=== PATIENT | male | born 2000 | race Caucasian/White ===

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

== ENCOUNTER 2019-01-20 11:14 | Emergency (ER) | payer OTHER ==
[2019-01-20 11:27] VITALS: BP 126/85; PULSE 79; RESP 18; TEMP 97.8
[2019-01-20] MEDS ORDERED: IBUPROFEN 600 MG TAB PO STA (11:31)
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
== END 2019-01-20 12:20 | disposition home or self-care (01) ==
LOC: EC 11:14
DX: S83.92XA Sprain of unspecified site of left knee, initial encounter (principal); S80.211A Abrasion, right knee, initial encounter; V86.99XA Unspecified occupant of other special all-terrain or other off-road motor vehicle injured in nontraffic accident, initial encounter; Y92.59 Other trade areas as the place of occurrence of the external cause
CPT/HCPCS: 99283

== ENCOUNTER 2023-04-12 02:25 | Emergency (ER) | payer OTHER ==
[2023-04-12] MEDS ORDERED: FLUORESCEIN STRIPS 1 MG STRIP LEFT EYE ONE (02:40)
[2023-04-12] MEDS ORDERED: PROPARACAINE 0.5% OPHTH DROPS 15 ML BTL BOTH EYES STA (02:40)
[2023-04-12 02:55] VITALS: TEMP 97.9
[2023-04-12] MEDS ORDERED: KETOROLAC 0.5% OPHTH DROPS 5 ML BTL BOTH EYES ONE (03:08)
[2023-04-12] MEDS ORDERED: SULFACETAMIDE SOD 10% OPHTH DROPS 15 ML BTL BOTH EYES ONE (03:08)
--- NOTE | 2023-04-12 03:45 | ED ---
Eye Problem HPI - General Chief complaint: Eye Problems Stated complaint: Eye Irritation Time Seen by Provider: 04/12/23 02:40 Source: patient, RN notes reviewed Mode of arrival: ambulatory Limitations: no limitations - History of Present Illness Initial comments: This is a 22-year-old male who presents to the emergency department for bilateral eye pain. States that he was cutting metal earlier today and is unsure if he may have gotten a piece in his eye, or if it just feels irritated. He may have also had a piece on his hand while he went to scratch his eye and cut it. He did use Visine eyedrops, which he initially felt were beneficial. However, when he woke up he had increasing pain. The right eye is more painful than the left. He does feel like he has some difficulty with his vision, however he states that this is likely from the pain and not wanting to open his eyes. He does not wear contacts. MD chief complaint: eye pain, eye redness - Related Data Previous Rx's Medication Instructions Recorded Amoxicillin 500 mg PO Q8H #30 capsule 03/24/15 Ibuprofen [Motrin] 600 mg PO Q8HR PRN #30 tab 01/20/19 Allergies Allergy/AdvReac Type Severity Reaction Status Date / Time No Known Allergies Allergy Verified 04/12/23 02:34 Review of Systems ROS Statement: Those systems with pertinent positive or pertinent negative responses have been documented in the HPI. ROS Other: All systems not noted in ROS Statement are negative. Past Medical History Past Medical History: No Reported History History of Any Multi-Drug Resistant Organisms: None Reported Past Surgical History: Ear Surgery Past Psychological History: No Psychological Hx Reported Smoking Status: Current every day smoker Past Alcohol Use History: Occasional Past Drug Use History: Marijuana General Exam Limitations: no limitations General appearance: alert, in no apparent distress Head exam: Present: atraumatic, normocephalic, normal inspection Eye exam: Present: PERRL, EOMI, other (Bilateral conjunctival injection, no obvious foreign bodies.) Respiratory exam: Present: normal lung sounds bilaterally. Absent: respiratory distress, wheezes, rales, rhonchi, stridor Cardiovascular Exam: Present: regular rate, normal rhythm, normal heart sounds. Absent: systolic murmur, diastolic murmur, rubs, gallop, clicks Neurological exam: Present: alert, oriented X3, CN II-XII intact Psychiatric exam: Present: normal affect, normal mood Skin exam: Present: warm, dry, intact, normal color. Absent: rash Course Vital Signs 04/12/23 04/12/23 02:32 03:55 Temperature 97.9 F 97.9 F Pulse Rate 94 97 Respiratory 18 12 Rate Blood Pressure 131/87 151/77 O2 Sat by Pulse 98 99 Oximetry Medical Decision Making - Medical Decision Making This is a 22-year-old male who presents to the emergency department for eye pain and redness. Was pt. sent in by a medical professional or institution? @ -No Did you speak to anyone other than the patient for history? @ -No Did you review nursing and triage notes? @ -Yes, and I agree, it is accurate with regards to the patient's symptoms. Were old charts reviewed? @ -No Differential Diagnosis? @ -Differential Eye Pain: Conjuncitivitis (viral, bacterial, allergic), corneal abrasion, foreign body, iritis, uveitis, keratitis, acute angle closure glaucoma, this is not meant to be an all-inclusive list. EKG interpreted by me (3pts min.)? @ -Not obtained X-rays interpreted by me (1pt min.)? @ -Not obtained CT interpreted by me (1pt min.)? @ -Not obtained U/S interpreted by me (1pt. min.)? @ -Not obtained What testing was considered but not performed? (CT, X-rays, U/S, labs)? Why? @ -None What meds were considered but not given? Why? @ -None Did you discuss the management of the patient with other professionals? @ -No Did you reconcile home meds? @ -No Was smoking cessation discussed for >3mins.? @ -No Was critical care preformed (if so, how long)? @ -No Were there social determinants of health that impacted care today? How? (Homelessness, low income, unemployed, alcoholism, drug addiction, transportation, low edu. Level, literacy, decrease access to med. care, prison, rehab)? @ -No Was there de-escalation of care discussed even if they declined? (Discuss DNR or withdrawal of care, Hospice)? @ -No What co-morbidities impacted this encounter? (DM, HTN, Smoking, COPD, CAD, Cancer, CVA, Hep., AIDS, mental health diagnosis, sleep apnea, morbid obesity)? @ -None Was patient admitted / discharged? @ -Discharged. Fluorescein staining performed revealing a right-sided corneal abrasion. I did not identify any obvious foreign bodies. We did attempt to do irrigation with Mariano lens, however the patient did not tolerate this and we had to stop. He was given a bottle sulfacetamide eyedrops in the emergency department for the corneal abrasion. Information for ophthalmology follow-up provided, he is instructed to contact them for follow-up appointment. Patient discharged home in stable condition. Undiagnosed new problem with uncertain prognosis? @ -None Drug Therapy requiring intensive monitoring for toxicity (Heparin, Nitro, Insulin, Cardizem)? @ -None Were any procedures done? @ -None Diagnosis/symptom? @ -Corneal abrasion Acute, or Chronic, or Acute on Chronic? @ -Acute Uncomplicated (without systemic symptoms) or Complicated (systemic symptoms)? @ -Uncomplicated Side effects of treatment? @ -None Exacerbation, Progression, or Severe Exacerbation] @ -Not applicable Poses a threat to life or bodily function? @ -No Return precautions reviewed in depth, the patient is instructed to return to the emergency department with any new, worsening, or concerning symptoms. Patient verbalized understanding. This case was discussed in detail with the attending ED physician, Dr. Coronel. Presentation, findings, and treatment plan discussed in detail as well. Disposition Clinical Impression: Corneal abrasion Disposition: HOME SELF-CARE Instructions (If sedation given, give patient instructions): Corneal Abrasion (ED) Additional Instructions: Return to the emergency department with any new, worsening, or concerning symptoms. Apply the sulfacetamide eyedrops provided as 2 drops to both eyes every 4 hours while awake for 5 days. You can apply the ketorolac eyedrops provided has one drop to each eye up to every 6 hours as needed for discomfort. Do not use this more than 3 days. You can also alternate with [id number] ibuprofen and Tylenol as needed for pain relief. Contact the [facility] as below for a follow-up appointment and reevaluation of symptoms. Is patient prescribed a controlled substance at d/c from ED?: No Referrals: None,Stated [Primary Care Provider] - 1-2 days George Tucker MD [STAFF PHYSICIAN] - 1-2 days
[2023-04-12 04:16] VITALS: BP 151/77; PULSE 97; RESP 12
== END 2023-04-12 04:00 | disposition home or self-care (01) ==
LOC: EC 02:25
DX: S05.00XA Injury of conjunctiva and corneal abrasion without foreign body, unspecified eye, initial encounter (principal); F17.200 Nicotine dependence, unspecified, uncomplicated; F12.90 Cannabis use, unspecified, uncomplicated; W31.1XXA Contact with metalworking machines, initial encounter
CPT/HCPCS: 99283